=== PATIENT | male | born 1960 | race Caucasian/White ===

== ENCOUNTER → 2016-11-03 | Outpatient (CLI) | payer BC ==
--- NOTE | 2016-11-03 10:07 | DIAGNOSTIC IMAGING REPORT ---
ABDOMEN ULTRASOUND FOR HERNIA CLINICAL HISTORY: Right inguinal pain. COMPARISON STUDY: None. FINDINGS: Small fat-containing reducible right inguinal hernia. No fluid collections or masses identified. IMPRESSION: Small fat-containing reducible right inguinal hernia. Electronically signed by: Rush Guaman M.D. 11/03/2016 10:06 AM Dictated Date/Time: 11/03/2016 10:05 AM
== END | disposition home or self-care (01) ==
LOC: C.ULTRBC 08:48
PROVIDERS: ATTEND Physician Assistant Medical
DX: R10.30 Lower abdominal pain, unspecified (principal); K40.90 Unilateral inguinal hernia, without obstruction or gangrene, not specified as recurrent